=== PATIENT | male | born 1955 | race Caucasian/White ===

== ENCOUNTER → 2017-03-03 | Day surgery (SDC) | payer OTHER ==
[~2017-03-03] VITALS: Ht 170.2 cm; Wt 88.0 kg
[~2017-03-03] MED LIST: 0.9% Sodium Chloride 1,000 ML IV ONE; AMLO5TAB2 PO; ASPI-973 PO; ATOR80TA77 PO; CHOL200025 PO; CYAN500 PO; FENO160T14 PO; FERR325T6 PO; HYDR-4003 PO; HYDR25TA4 PO; INSU100V27 SQ; KEN25CR EXT; LISI40TA PO; METF850T2 PO; NPH,100V10 SUBQ; Sodium Chloride LOK Flush 10 mL Syringe IV PRN; fentaNYL-PF 50 mCg/mL 2 mL Inj IVPUSH PRN
[2017-03-03 09:19] VITALS: BP 139/79; PULSE 94; RESP 16; O2SAT 96
[2017-03-03 10:00] VITALS: BP 121/72; PULSE 93; RESP 16; O2SAT 97
[2017-03-03 10:10] VITALS: BP 121/72; PULSE 88; RESP 16; O2SAT 97
[2017-03-03 10:32] VITALS: BP 126/73; PULSE 81; RESP 14; O2SAT 97
[2017-03-03 10:37] VITALS: BP 135/67; PULSE 86; RESP 16; O2SAT 99
--- NOTE | 2017-03-03 13:15 | ENDO ---
[address] [address] ENDOSCOPY PROCEDURE PATIENT: ROJELIO LALA : 1955 MR#: [id number] ADMIT: 03/03/2017 JOB ID: [id number] DATE OF SERVICE: 03/03/2017 TYPE OF OPERATION: Esophagogastroduodenoscopy, biopsy, colonoscopy. PREOPERATIVE DIAGNOSIS(ES): Anemia, history of colon polyps. POSTOPERATIVE DIAGNOSIS(ES): 1. Mild nonerosive gastritis. 2. Mild bile reflux. 3. Mild sigmoid diverticulosis. 4. Small internal hemorrhoids. ANESTHESIA: Fentanyl 75 mcg, Versed 4 mg IV administered. COMPLICATIONS: None. BLOOD LOSS: Minimal. DESCRIPTION OF PROCEDURE: After risks and benefits explained to the patient, informed consent was obtained. After anesthesia administered, upper endoscope was then inserted in mouth, intubated into the esophagus, stomach, second portion of duodenum. Mucosa carefully examined. After procedure was done, the scope withdrawn, procedure terminated. Colonoscope was then inserted from the rectum to the terminal ileum. Mucosa examined. Prep of the patient was fair. After procedure was done, the scope withdrawn, procedure terminated. FINDINGS: In inspection of the esophagus, esophagus was normal without masses, ulcers, or lesions. Z-line located at 45 cm from incisors. Upon entering the stomach, there was mild bile reflux, mild nonerosive gastritis. No masses or ulcers were seen. Retroflexion was normal. Duodenal bulb, first and second portion normal. Biopsies taken of duodenum,antrum, body of stomach. Upon inspection of the anus, no masses, hemorrhages, ulcers that were seen throughout the entire examination. No polyps, masses, or lesions. There was mild sigmoid diverticulosis. Retroflexion showed small internal hemorrhoids. Terminal ileum was normal. IMPRESSION: 1. Small internal hemorrhoids. 2. Mild sigmoid diverticulosis. 3. Mild reflux. 4. Mild nonerosive gastritis. RECOMMENDATIONS: Await pathology results. High-fiber diet. Repeat colonoscopy five years, history of colon polyps.
--- NOTE | 2017-03-07 12:22 | PATH ---
SURGICAL PATHOLOGY Attending Physician:Raymond Colunga MD CASE STATUS: Signed Out PATIENT NAME: ROJELIO LALA JR PID: [id number] : 1955 DATE COLLECTED:03/03/2017 20:57 SPECIMEN: 1: Stomach, Antrum, Biopsy 2: Gastric, Biopsy 3: Duodenum, Biopsy CLINICAL HISTORY: ANEMIA 1). ANTRUM BIOPSY, RULE OUT H.PYLORI 2). GASTRIC BODY BIOPSY, RULE OUT H.PYLORI 3). DUODENUM BIOPSY FINAL DIAGNOSIS: 1. Stomach, Antrum, Biopsy: Antral mucosa with reactive gastropathy. Negative for Helicobacter by immunohistochemistry. Negative for intestinal metaplasia. Negative for dysplasia and malignancy. 2. Stomach, Body, Biopsy: Body-type mucosa with no diagnostic abnormality. Negative for Helicobacter organisms. Negative for intestinal metaplasia. Negative for dysplasia and malignancy. 3. Duodenum, Biopsy: Duodenal mucosa with no diagnostic abnormality. Negative for active inflammation, features of sprue, dysplasia and malignancy. ICD10: R10.9 GROSS DESCRIPTION: The specimen is received in three formalin filled containers labeled with the patient's name. 1). The specimen is labeled "antrum" and consists of 2 tiny portions of tissue which aggregate to 0.2 x 0.2 x 0.2 CM. The specimen is entirely submitted in cassette 1A. 2). The specimen is labeled "gastric body" and consists of 2 portions of tissue which aggregate to 0.3 x 0.2 x 0.2 CM. The specimen is entirely submitted in cassette 2A. 3). The specimen is labeled "duodenum" and consists of 2 portions of tissue which aggregate to 0.2 x 0.2 x 0.2 CM. The specimen is entirely submitted in cassettes 3A. 03/03/2017DC MICRO DESCRIPTION: 1. An immunohistochemical stain was performed to evaluate for Helicobacter organisms and is negative. A control stain showed appropriate reactivity. * This test was developed and its performance characteristics determined by [facility]. It has not been cleared or approved by the [place]. Food and Drug Administration. The FDA has determined that such clearance or approval is not necessary. This test is used for clinical purposes. It should not be regarded as investigational or for research. ICD-9 CODES: CPT CODES: 1: 05583, 49583 2: 48688 3: 38421 Electronically Signed Out Cristal Peña MD [facility] [address], [place] [address] Technical component performed at [facility], [facility] [address], [place], [address]
== END | disposition home or self-care (01) ==
LOC: END 01:14
PROVIDERS: ATTEND Internal Medicine Gastroenterology
DX: Z12.11 Encounter for screening for malignant neoplasm of colon (principal); Z86.010 Personal history of colon polyps; K64.8 Other hemorrhoids; K57.30 Diverticulosis of large intestine without perforation or abscess without bleeding; K21.9 Gastro-esophageal reflux disease without esophagitis; K29.70 Gastritis, unspecified, without bleeding; D64.9 Anemia, unspecified; I10 Essential (primary) hypertension; E11.9 Type 2 diabetes mellitus without complications; E78.5 Hyperlipidemia, unspecified; M54.9 Dorsalgia, unspecified; Z86.73 Personal history of transient ischemic attack (TIA), and cerebral infarction without residual deficits; Z79.82 Long term (current) use of aspirin; Z79.4 Long term (current) use of insulin; Z79.84 Long term (current) use of oral hypoglycemic drugs
CPT/HCPCS: 43239; G0105; G0500; J2250; J3010; J7030